=== PATIENT | female | born 1980 | race Caucasian/White ===

== ENCOUNTER 2016-02-20 20:37 | Emergency (ER) | payer MEDICAID ==
[~2016-02-20] VITALS: Ht 165.1 cm; Wt 75.0 kg
[~2016-02-20 20:37] MED LIST: ALEVE 220MG220 MG PO; AMOXICILLIN 50500 MG PO; AMOXICILLIN 8751 TAB PO; AUGMENTIN 875 M1 TAB PO; BACTRIM DS 8001 TAB PO; BACTROBAN 22GM22 GM TP; BENADRYL; CEPHALEXIN500 M1 PO; FLEXERIL10 MG PO; GENTAMICIN OPTHA3 GM OD; IBU-8800 MG PO; IBUPROFEN800 MG PO; LORTAB 5/500 501 TAB PO; LOSEASONIQUE PO; MOTRIN800 MG PO; NAPROSYN PO; NO HOME MEDICATIONS; NORCO 325 MG-51 TAB PO; PEN-VEE K500 MG PO; PENICILLIN V500 MG PO; PERCOCET 325 MG1 TA2 PO; PRENATAL VITAMI1 TA5 PO; ROXICODONE 55 MG/TAB PO; SEPTRA DS 8001 TAB PO; SUDAFED 30M30 MG/TAB PO; ULTRAM 50MG TAB50 MG PO; ULTRAM50 MG PO; ZOFRAN ODT8 MG PO; ZOVIRAX CREAM3 GM
[2016-02-20 20:39] VITALS: BP 134/97; PULSE 100; TEMP 98.4
[2016-02-20] MEDS ORDERED: CLARITIN 1010 MG/TAB PO (20:42)
[2016-02-20] MEDS ORDERED: CELEXA10 MG PO (20:42)
[2016-02-20] MEDS ORDERED: 00186-0372-20 (20:43)
[2016-02-20] MEDS ORDERED: AMOXICILLIN 50500 MG PO (21:11)
[2016-02-20] MEDS ORDERED: ULTRAM 50MG TAB50 MG PO (21:11)
== END 2016-02-20 21:27 | disposition home or self-care (01) ==
LOC: COL.ER 20:37
DX: K08.89 Other specified disorders of teeth and supporting structures (principal); F17.210 Nicotine dependence, cigarettes, uncomplicated

== ENCOUNTER 2016-06-19 16:08 | Emergency (ER) | payer MEDICAID ==
[~2016-06-19] VITALS: Ht 165.1 cm; Wt 77.3 kg
[~2016-06-19 16:08] MED LIST changes: +00186-0372-20; +CELEXA10 MG PO; +CLARITIN 1010 MG/TAB PO
[2016-06-19 16:10] VITALS: BP 114/65; PULSE 72; TEMP 97.6
[2016-06-19] MEDS ORDERED: VALTREX1 GM PO (16:21)
== END 2016-06-19 17:42 | disposition home or self-care (01) ==
LOC: COL.ER 16:08
DX: B02.39 Other herpes zoster eye disease (principal); B02.9 Zoster without complications; F32.9 Major depressive disorder, single episode, unspecified

== ENCOUNTER 2019-07-07 20:41 | Emergency (ER) | payer SELFPAY ==
[~2019-07-07] VITALS: Ht 165.1 cm; Wt 65.9 kg
[~2019-07-07 20:41] MED LIST changes: +VALTREX1 GM PO
[2019-07-07 20:45] VITALS: BP 130/72
[2019-07-07 21:27] LABS: COLLECTION METHOD CLEAN CATCH
[2019-07-07 21:42] LABS: MUCOUS Present /lpf; PH 5 (5-8); URINE APPEARANCE Hazy; URINE BACTERIA None Seen /hpf; URINE BILIRUBIN Negative (NEGATIVE); URINE BLOOD Negative (NEGATIVE); URINE COLOR Yellow; URINE GLUCOSE Negative (NEGATIVE); URINE KETONE Negative (NEGATIVE); URINE LEUKOCYTE ESTERASE Trace (NEGATIVE); URINE NITRATE Negative (NEGATIVE); URINE PROTEIN(semi-quant) Negative (NEGATIVE); URINE UROBILINOGEN Negative (NEGATIVE)
[2019-07-07 21:43] LABS: BASO # 0.1 (0.0-0.2); BASO % 0.6 % (0.0-2.0); EOS # 0.2 (0.0-0.7); EOS % 1.2 % (0-4.0); GRAN # 8.9 (1.4-6.5); GRAN % 67.9 % (42.2-75.2); HEMATOCRIT 40.3 % (37.0-47.0); HEMOGLOBIN 12.9 g/dl (12.5-16.0); LYMPH % 22.7 % (20.0-51.0); MEAN CELL VOLUME 90 fl (80.0-100.0); MEAN CORPUSCULAR HEMOGLOBIN 29 pg (27.0-31.0); MEAN CORPUSCULAR HGB CONC 32 g/dl (33.0-37.0); MEAN PLATELET VOLUME 9.9 fl (7.4-10.4); MONO # 0.9 (0.1-0.6); MONO % 7.2 % (1.7-9.3); PLATELET COUNT 291 K/mm3 (130-400); RED BLOOD COUNT 4.49 M/mm3 (4.10-5.30); REDCELL DISTRIBUTION WIDTH-CV 13.5 % (11.5-14.5)
[2019-07-07 21:47] LABS: ALBUMIN 3.9 gm/dL (3.5-5.0); BILIRUBIN,TOTAL 0.3 mg/dL (0.0-1.0); C-REACTIVE PROTEIN 1.7 mg/dL (0.0-0.9); CALCIUM 9.5 mg/dL (8.4-10.2); CREATININE, serum 0.44 (0.52-1.25); POTASSIUM 3.5 mmol/L (3.4-5.0); TOTAL PROTEIN 7.7 gm/dL (6.4-8.2)
[2019-07-07 22:22] LABS: ERYTHROCYTE SEDIMENTATION RATE 13 mm/hr (0-20)
[2019-07-07] MEDS ORDERED: FLEXERIL 1010 MG/TAB PO (22:40)
[2019-07-07] MEDS ORDERED: MOTRIN 800800 MG/TAB PO (22:40)
[2019-07-07 22:55] VITALS: PULSE 86; TEMP 98.1
== END 2019-07-07 22:55 | disposition home or self-care (01) ==
LOC: COL.ER 20:41
PROVIDERS: Emergency Medicine
DX: R50.9 Fever, unspecified (principal); M79.10 Myalgia, unspecified site; F32.9 Major depressive disorder, single episode, unspecified; F17.210 Nicotine dependence, cigarettes, uncomplicated
CPT/HCPCS: J1885; J7030

== ENCOUNTER 2019-09-04 13:20 | Emergency (ER) | payer SELFPAY ==
[~2019-09-04] VITALS: Ht 165.1 cm; Wt 68.2 kg
[~2019-09-04 13:20] MED LIST changes: +FLEXERIL 1010 MG/TAB PO; +MOTRIN 800800 MG/TAB PO
[2019-09-04 13:52] LABS: HEMOGLOBIN 11.4 g/dl (12.5-16.0); MEAN CELL VOLUME 85 fl (80.0-100.0); MEAN CORPUSCULAR HEMOGLOBIN 28 pg (27.0-31.0); MEAN CORPUSCULAR HGB CONC 33 g/dl (33.0-37.0); MEAN PLATELET VOLUME 9.7 fl (7.4-10.4); PLATELET COUNT 336 K/mm3 (130-400); REDCELL DISTRIBUTION WIDTH-CV 13.4 % (11.5-14.5)
[2019-09-04 14:01] LABS: PROTHROMBIN TIME 11.7 SECONDS (9.7-12.8)
[2019-09-04 14:02] LABS: ALANINE AMINOTRANSFERASE 24 U/L (4-34); ALBUMIN 3.5 gm/dL (3.5-5.0); ALKALINE PHOSPHATASE 91 U/L (50-136); ANION GAP 9 mmol/L (7-16); AST,SGOT 27 U/L (15-37); BILIRUBIN,TOTAL 0.5 mg/dL (0.0-1.0); BLOOD UREA NITROGEN 7 mg/dL (7-17); CALCIUM 9.1 mg/dL (8.4-10.2); CARBON DIOXIDE 24 mmol/L (22-30); CHLORIDE 101 mmol/L (98-107); CREATININE, serum 0.44 (0.52-1.25); GLUCOSE 118 mg/dL (74-106); LIPASE 10 U/L (23-300); MAGNESIUM 1.8 mg/dL (1.6-2.3); POTASSIUM 4.3 mmol/L (3.4-5.0); SODIUM 134 mmol/L (137-145); TOTAL PROTEIN 7.3 gm/dL (6.4-8.2)
[2019-09-04 14:03] LABS: ALCOHOL(ethanol),MEDICAL < 10 mg/dL
[2019-09-04 14:04] LABS: PARTIAL THROMBOPLASTIN TIME 22.5 SECONDS (26.0-37.0)
[2019-09-04 14:11] LABS: HEMATOCRIT 34.8 % (37.0-47.0)
[2019-09-04 14:16] LABS: TROPONIN-I < 0.012 ng/mL (0.000-0.035)
[2019-09-04 14:18] LABS: BAND 3 % (0-10); LYMPHOCYTE 10 % (20.0-51.0); NEUTROPHILS 81 % (42.0-75.2); PLATELET ESTIMATE NORMAL (NORMAL)
[2019-09-04 16:34] VITALS: BP 124/81; PULSE 103; TEMP 98.2
[2019-09-04] MEDS ORDERED: ZITHROMAX Z PA250 MG PO (17:30)
[2019-09-04] MEDS ORDERED: AMOXICILLIN 8751 TAB PO (17:30)
== END 2019-09-04 17:42 | disposition home or self-care (01) ==
LOC: COL.ER 13:20
PROVIDERS: Emergency Medicine
DX: J18.9 Pneumonia, unspecified organism (principal); F32.9 Major depressive disorder, single episode, unspecified
CPT/HCPCS: J2060; J2270; J7030; Q9967